=== PATIENT | female | born 1965 | race African-American/Black ===

== ENCOUNTER → 2017-08-06 | Day surgery (SDC) | payer BC ==
[~2017-08-06] MED LIST: ASPIR 8181 MG PO; ATORVASTATIN CA10 MG PO; CARVEDILOL12.5 MG PO; CLONAZEPAM0.5 MG PO; CYCLOBENZAPRINE5 MG PO; FENTANYL CITRATE/PF 100MCG/2 ML INJ ONE; FLECAINIDE ACE100 MG PO; HYDROCHLOROTHIA25 MG PO; LIDOCAINE HCL 2% LOCAL INJ 5 ML SDV VIAL INJ ONE; LOSARTAN POTAS100 MG PO; MAXALT MLT10 MG PO; MIDAZOLAM HCL 2 MG/2 ML VIAL ONE; PROPOFOL IV EMULSION 10 MG/ML 20 ML VIAL ONE; TRAZODONE HCL100 MG PO; TROKENDI XR PO
--- NOTE | 2017-08-06 10:36 | Operative Report ---
DATE OF PROCEDURE: NAME OF THE PROCEDURES: Esophagogastroduodenoscopy and colonoscopy. PREPROCEDURE DIAGNOSIS: Patient has history of noncardiac chest pain and rectal bleeding. DESCRIPTION OF EGD PROCEDURE: After informed written consent, premedication with monitored anesthesia care, standard adult video Olympus gastroscope was introduced into the mouth, esophagus, stomach, into the second portion of the duodenum. The first and second portion of the duodenum appeared to be normal. Antrum, body, fundus unremarkable. Biopsies were obtained from the antrum and body to rule out H. pylori. Retroflexion revealed a small sliding hiatal hernia. The GE junction appeared to be normal without any evidence of Fabian's esophagus. Random biopsies of the lower and mid esophagus were done to rule out eosinophilic esophagitis or GERD. IMPRESSION: Hiatal hernia. DESCRIPTION OF COLONOSCOPY PROCEDURE: The video colonoscope was introduced into the rectum and all the way into the terminal ileum. The terminal ileum and ileocecal valve are normal. The cecum and proximal ascending colon had nonspecific colitis, and biopsies were done. This could be related to the underlying prep that she took or the beginnings of inflammatory bowel disease. The remaining portions of the colon, the mid and distal ascending, transverse, descending colon were normal. Sigmoid colon showed mild diverticulosis, and internal and external hemorrhoids were seen on the rectum on retroflexion with some stigmata of bleeding. IMPRESSION: 1. Hiatal hernia. 2. Diverticulosis. 3. Mild nonspecific colitis involving the cecum and proximal ascending colon. 4. Internal and external hemorrhoids with stigmata. RECOMMENDATION: High-fiber diet, local management of hemorrhoids, colonoscopy in 10 years, follow up in the office in 3 to 4 weeks, and GERD precautions. Further recommendations will be based on patient's clinical course. Job#: [id number]
== END | disposition home or self-care (01) ==
LOC: OR 05:53
PROVIDERS: ATTEND Internal Medicine Gastroenterology
DX: K52.9 Noninfective gastroenteritis and colitis, unspecified (principal); K21.0 Gastro-esophageal reflux disease with esophagitis; K57.30 Diverticulosis of large intestine without perforation or abscess without bleeding; K44.9 Diaphragmatic hernia without obstruction or gangrene; K64.8 Other hemorrhoids; K64.4 Residual hemorrhoidal skin tags; E66.9 Obesity, unspecified; I10 Essential (primary) hypertension; R07.89 Other chest pain; M19.90 Unspecified osteoarthritis, unspecified site; E78.5 Hyperlipidemia, unspecified; I48.91 Unspecified atrial fibrillation; F32.9 Major depressive disorder, single episode, unspecified; F41.9 Anxiety disorder, unspecified; Z88.0 Allergy status to penicillin; Z79.02 Long term (current) use of antithrombotics/antiplatelets; Z68.32 Body mass index [BMI] 32.0-32.9, adult; Z86.73 Personal history of transient ischemic attack (TIA), and cerebral infarction without residual deficits; Z80.0 Family history of malignant neoplasm of digestive organs
CPT/HCPCS: 43239; 45380; J2001; J2250